=== PATIENT | male | born 2000 | race Caucasian/White ===

== ENCOUNTER 2023-04-07 20:09 | Inpatient (IN) | payer MEDICAID ==
[~2023-04-07] VITALS: Ht 167.6 cm; Wt 106.6 kg
[2023-04-07 22:39] LABS: COVID AG,FIA SOURCE NASAL SWAB
[2023-04-07 22:50] LABS: ALCOHOL, URINE DRUG SCREEN NEGATIVE (NEGATIVE); AMPHET/METH SCREEN,URINE NEGATIVE (NEGATIVE); BARBITURATE SCREEN, URINE NEGATIVE (NEGATIVE); BENZODIAZEPINES SCREEN,URINE NEGATIVE (NEGATIVE); CANNABINOID SCREEN,URINE POSITIVE (NEGATIVE); COCAINE SCREEN,URINE NEGATIVE (NEGATIVE); METHADONE SCREEN, URINE NEGATIVE (NEGATIVE); OPIATE SCREEN,URINE NEGATIVE (NEGATIVE); PHENCYCLIDINE SCREEN,URINE NEGATIVE (NEGATIVE)
[2023-04-07 22:58] LABS: BASOPHILS % (AUTO) 0.1 % (0.0-2.0); EOSINOPHILS % (AUTO) 0 % (1.0-6.0); HEMATOCRIT 44.1 % (41-53); HEMOGLOBIN 14.8 g/dL (13.5-17.5); LYMPHOCYTES # (AUTO) 1.6 K/uL (1.0-4.8); LYMPHOCYTES % (AUTO) 10.5 % (22.0-44.0); MEAN CORPUSCULAR HEMOGLOBIN 27.3 pg (26.0-34.0); MEAN CORPUSCULAR HGB CONC 33.5 G/dL (31.0-37.0); MEAN CORPUSCULAR VOLUME 82 fL (80-100); MONOCYTES # (AUTO) 1.5 K/uL (0.1-1.0); MONOCYTES % (AUTO) 9.5 % (2.0-9.0); NEUTROPHILS # (AUTO) 12.4 K/uL (1.8-7.7); NEUTROPHILS % (AUTO) 79.9 % (40.0-70.0); PLATELET COUNT (AUTO) 394 K/uL (150-450); RED BLOOD CELL COUNT(AUTO) 5.41 MIL/uL (4.50-5.90); WHITE BLOOD COUNT (AUTO) 15.5 K/uL (4.5-11.0)
[2023-04-07 23:00] LABS: SARS-COV2 (COVID) ANTIGEN,FIA Negative (Negative)
[2023-04-07 23:17] LABS: ALCOHOL, BLOOD (SERUM) < 3 mg/dL (0-10)
[2023-04-07 23:18] LABS: ALANINE AMINOTRANSFERASE 153 U/L (12-78); ALBUMIN 4.2 g/dL (3.4-5.0); ALKALINE PHOSPHATASE 58 U/L (46-116); ANION GAP 12 mmol/L (8-16); ASPARTATE AMINOTRANSFERASE 50 U/L (15-37); BILIRUBIN,TOTAL 0.6 mg/dL (0.1-1.0); CALCIUM, TOTAL 9.6 mg/dL (8.8-10.5); CARBON DIOXIDE 26 mmol/L (22-29); CHLORIDE 102 mmol/L (98-107); GLOMERULAR FILTR. RATE CALC > 60 mL/min (>60); GLUCOSE,RANDOM 95 mg/dL (70-110); SODIUM SERUM 139 mmol/L (136-145); TOTAL PROTEIN, SERUM 7.4 g/dL (6.4-8.2); UREA NITROGEN, BLOOD 8 mg/dL (7-18)
[2023-04-08] MEDS ORDERED: TUBERCULIN, PURIFIED PROTEIN DERIVATIVE 5 TU/0.1 ML SYRINGE ID ONE (00:15)
[2023-04-08] MEDS ORDERED: ZOLPIDEM TARTRATE 10 MG TABLET PO PRN (00:15)
[2023-04-08] MEDS ORDERED: ACETAMINOPHEN 325 MG TABLET PO PRN (00:15)
[2023-04-08] MEDS ORDERED: MAGNESIUM HYDROXIDE SUSPENSION 30 ML UDCUP PO PRN (00:15)
[2023-04-08] MEDS ORDERED: OLANZapine 5 MG RAPDIS TABLET PO PRN (00:15)
[2023-04-08] MEDS ORDERED: HydrOXYzine PAMOATE 50 MG CAPSULE PO PRN (00:15)
[2023-04-08] MEDS ORDERED: LOPERAMIDE HCL 2 MG CAPSULE PO PRN (00:15)
[2023-04-08] MEDS ORDERED: GuaiFENesin/D-METHORPHAN [SUGAR-FREE] 200-20MG/10 ML SYRUP UDCUP PO PRN (00:15)
[2023-04-08] MEDS ORDERED: MAG HYDROX/ALUMINUM HYD/SIMETH ES 30 ML SUSPENSION UDCUP PO PRN (00:15)
[2023-04-08] MEDS ORDERED: PROMETHAZINE HCL 25 MG TABLET PO PRN (00:15)
[2023-04-08] MEDS: FOLIC ACID 1 MG TABLET PO SCH (08:40)
[2023-04-08] MEDS: THIAMINE 100 MG TABLET PO SCH (08:40)
[2023-04-08] MEDS: NALTREXONE HCL 50 MG TABLET PO SCH (08:40)
[2023-04-08] MEDS: MULTIVITAMINS WITH MINERALS, THERAPEUTIC TABLET PO SCH (08:40)
[2023-04-08] MEDS: FLUoxetine HCL 20 MG CAPSULE PO SCH (08:41)
[2023-04-08] MEDS: OMEGA-3/DHA/EPA/FISH OIL 1,000 MG CAPSULE PO SCH (08:41)
[2023-04-08] MEDS: POTASSIUM CHLORIDE 20 MEQ ER TABLET PO ONE ×2 (10:23→19:35)
[2023-04-08 14:16] VITALS: BP 163/91; PULSE 86; RESP 20; TEMP 98.8; O2SAT 100
[2023-04-08] MEDS ORDERED: CloNIDine HCL 0.1 MG TABLET PO PRN (19:15)
[2023-04-08] MEDS: MELATONIN 5 MG TABLET PO SCH (20:18)
[2023-04-08] MEDS: OLANZapine 5 MG RAPDIS TABLET PO SCH (20:18)
[2023-04-08] MEDS: LORazepam 2 MG TABLET PO PRN (20:18)
[2023-04-08 20:27] VITALS: BP 144/82; PULSE 88; RESP 20; TEMP 97.6; O2SAT 100
[2023-04-08] MEDS ORDERED: INFLUENZA VIRUS VACCINE QVS 2023-24 (6MO+)/PF 60 MCG/0.5 ML SYRINGE IM. ONE (21:45)
[2023-04-09 08:23] VITALS: BP 126/78; PULSE 90; RESP 18; TEMP 97.6; O2SAT 100
[2023-04-09 08:45] LABS: HEMOGLOBIN A1C 5.4 % (3.8-5.6)
[2023-04-09 08:58] LABS: ALANINE AMINOTRANSFERASE 153 U/L (12-78); ALBUMIN 3.8 g/dL (3.4-5.0); ALKALINE PHOSPHATASE 59 U/L (46-116); ANION GAP 9 mmol/L (8-16); ASPARTATE AMINOTRANSFERASE 48 U/L (15-37); BILIRUBIN,TOTAL 0.4 mg/dL (0.1-1.0); CALCIUM, TOTAL 9.3 mg/dL (8.8-10.5); CARBON DIOXIDE 28 mmol/L (22-29); CHLORIDE 106 mmol/L (98-107); CHOL/HDL RATIO 2.7 (4.2-7.3); CHOLESTEROL 98 mg/dL (131-200); CREATININE 1.06 mg/dL (0.60-1.30); FREE T4 (FREE THYROXINE) 1.36 ng/dL (0.76-1.46); GLOMERULAR FILTR. RATE CALC > 60 mL/min (>60); GLUCOSE,RANDOM 85 mg/dL (70-110); HDL CHOLESTEROL 36 mg/dL (40-60); LDL CHOL (CALC.) 45 mg/dL (0-130); POTASSIUM 3.8 mmol/L (3.5-5.1); SODIUM SERUM 143 mmol/L (136-145); THYROID STIMULATING HORMONE 0.59 uIU/mL (0.36-3.74); TOTAL PROTEIN, SERUM 6.8 g/dL (6.4-8.2); TRIGLYCERIDES 83 mg/dL (15-150); UREA NITROGEN, BLOOD 9 mg/dL (7-18)
[2023-04-09] MEDS ORDERED: NALT50TA33 PO (17:54)
[2023-04-09] MEDS ORDERED: OLAN5TAB94 PO (17:54)
[2023-04-09] MEDS ORDERED: OMEG-135 PO (17:54)
[2023-04-09] MEDS ORDERED: FLUO20CA36 PO (17:54)
[2023-04-09] MEDS ORDERED: MELA5TAB40 PO (17:54)
[2023-04-09 20:12] VITALS: BP 136/93; PULSE 92; RESP 18; TEMP 97.6; O2SAT 100
[2023-04-09] MEDS: OLANZapine 10 MG RAPDIS TABLET PO SCH (22:00)
[2023-04-10 03:07] LABS: HEPATITIS C AB (EIA) Non Reactive (Non Reactive)
[2023-04-10 05:09] LABS: HEPATITIS A ANTIBODY IGM Negative (Negative); HEPATITIS B CORE IGM Negative (Negative)
[2023-04-10] MEDS: FLUoxetine HCL 20 MG CAPSULE PO SCH (08:35)
[2023-04-10 09:07] VITALS: BP 133/67; PULSE 100; RESP 18; TEMP 97.8; O2SAT 98
== END 2023-04-10 13:45 | disposition home or self-care (01) | DRG 750 ==
LOC: EMS 20:09 → B3A 04-08 08:54
PROVIDERS: ADMIT Psychiatry & Neurology Psychiatry; ATTEND Psychiatry & Neurology Psychiatry
PROC: GZHZZZZ Group Psychotherapy (ICD-10-PCS; principal; 2023-04-08)
PROC: GZ56ZZZ Individual Psychotherapy, Supportive (ICD-10-PCS; 2023-04-08)
DX: F25.9 Schizoaffective disorder, unspecified (principal); D72.829 Elevated white blood cell count, unspecified; F12.10 Cannabis abuse, uncomplicated; F17.210 Nicotine dependence, cigarettes, uncomplicated; Z20.822 Contact with and (suspected) exposure to COVID-19; F32.A Depression, unspecified; F60.0 Paranoid personality disorder; Z55.9 Problems related to education and literacy, unspecified; Z59.9 Problem related to housing and economic circumstances, unspecified; Z63.9 Problem related to primary support group, unspecified; Z65.3 Problems related to other legal circumstances; Z81.8 Family history of other mental and behavioral disorders; Z91.048 Other nonmedicinal substance allergy status
CPT/HCPCS: 80053; 80061; 80074; 80307; 83036; 84439; 84443; 85025; 86592; 99285; G0480; Q9967